=== PATIENT | male | born 2000 | race Caucasian/White ===

== ENCOUNTER 2020-05-13 15:43 | Emergency (ER) | payer SELFPAY ==
[2020-05-13 16:05] VITALS: BP 135/91; PULSE 71; RESP 15; TEMP 36.3; O2SAT 100; BMI 22.6
--- NOTE | 2020-05-13 16:11 | ED_ITS ---
HPI - Extremity Injury (Upper) General: Chief Complaint: Extremity Injury, Upper Stated Complaint: L HAND FINGER INJURY Time Seen by Provider: 05/13/20 16:10 Source: patient Mode of arrival: ambulatory Limitations: no limitations History of Present Illness: HPI narrative: Patient is a 20-year-old male who presents to ED today for evaluation of a left finger injury. Patient tells me yesterday he accidentally got the dog leash wrapped up around his left fourth digit. He states the dog then yanked on the leash. Patient states he is having pain near his proximal phalanx of the digit. complaint: injury to: left and finger Onset (ago): day(s) (yesterday) Other Extremity Injury: Left: fingers Other injuries: none Place: home Severity: moderate Relieving factors: immobilization Exacerbating factors: movement of extremity Associated symptoms: Reports no associated symptoms Review of Systems Musc: Reports: extremity pain (L 4th finger) and extremity swelling (L 4th finger) Neuro: Denies: numbness in extremities or sensory changes PFS ED PFSH: Social History (Updated 05/13/20 @ 16:09 by Perry Hastings RN) Smoking and tobacco status: never smoked Alcohol intake: never Substance/Drug Use: never Physical Exam Const: COMMON NORMALS: no acute distress, average body habitus, patient oriented x3, no limitations, healthy appearing, alert and well nourished Extremity: OTHER: TTP of proximal phalanx of L 4th finger; mild swelling noted; dec ROM to PIP joint; cap refill brisk; sensory intact Neuro: COMMON NORMALS: patient oriented x3, no focal motor deficits and no sensory deficits noted SENSORIUM/ORIENTATION: Yes alert Course Vital Signs: Vital signs: Vital Signs Temperature 97.3 F L 05/13/20 16:05 Pulse Rate 71 05/13/20 16:20 Respiratory Rate 14 05/13/20 16:20 Blood Pressure 135/91 05/13/20 16:20 Pulse Oximetry 100 05/13/20 16:20 MDM - Extremity Injury (Upper) Imaging Data^: XR L finger: My impression: NAD Discharge Plan Discharge Patient Disposition: Home Clinical Impression: Strain of finger, left Condition: Stable Discharge Orders: Discharge ED (Routine); Ordered 05/13/20 Ordered By: Ailyn Brown Patient Instructions: Opioid Safety Activity Restrictions/Additional Instructions: [facility] is committed to fighting the nationwide opiate epidemic. We are providing ALL patients with information regarding opiate safety. If you received opiate pain medication during your stay or if you received a prescription for opiate pain medication-please review this handout. If not, you may disregard. Thank you. You may continue to use your finger splint as needed. Please follow-up with primary care in 5 to 7 days if pain persists. Coding Level of Care Code ED [employer] for [employer] Fwjaleesa Exam Expanded Problem Focused
[2020-05-13 16:20] VITALS: BP 135/91; PULSE 71; RESP 14; O2SAT 100
--- NOTE | 2020-05-13 16:24 | XR_ITS ---
WS: [id number] 3 views of the left fourth finger, 05/13/2020 Clinical Data: trauma; 4th Comparison: None. Findings: No fractures or dislocations are seen. The soft tissues are normal. The epiphyses and joint spaces ar e not remarkable. XR/XR finger LT min 2V [id number] Impression: Negative left fourth finger.
== END 2020-05-13 17:15 | disposition home or self-care (01) ==
PROVIDERS: Emergency Provider Physician Assistant
DX: S56.116A Strain of flexor muscle, fascia and tendon of left ring finger at forearm level, initial encounter (principal); X50.9XXA Other and unspecified overexertion or strenuous movements or postures, initial encounter
CPT/HCPCS: 73140; 99282